=== PATIENT | male | born 1940 | race Two or more races ===

== ENCOUNTER 2018-02-19 09:09 | Emergency (ER) | payer OTHER ==
[~2018-02-19] VITALS: Ht 162.6 cm; Wt 71.0 kg
[~2018-02-19 09:09] MED LIST: AMLO5TAB7 PO; ASPI-650 PO; CARV12.543 PO; CEFD300C37 PO; FURO40TA6 PO; GABA300C10 PO; GLIP5TAB10 PO; METR500T PO
[2018-02-19 09:10] VITALS: BP 169/84
[2018-02-19] MEDS ORDERED: SODIUM CHLORIDE FLUSH 10ML SYR IVF ONE (09:30)
== END 2018-02-19 12:10 | disposition home or self-care (01) ==
LOC: ED 11:00
DX: K59.00 Constipation, unspecified (principal); E78.5 Hyperlipidemia, unspecified
CPT/HCPCS: 74018; 99284

== ENCOUNTER → 2018-02-23 | Outpatient (CLI) | payer OTHER ==
[~2018-02-23] MED LIST changes: +SINCALIDE (KINEVAC) 5 MCG ONE
== END | disposition home or self-care (01) ==
LOC: RAD 10:34
PROVIDERS: ATTEND Surgery
DX: K81.1 Chronic cholecystitis (principal); R10.9 Unspecified abdominal pain; I50.9 Heart failure, unspecified; E11.9 Type 2 diabetes mellitus without complications
CPT/HCPCS: 78227; A9537; J2805

== ENCOUNTER 2018-03-16 23:03 | Observation (INO) | payer OTHER ==
[~2018-03-16] VITALS: Ht 165.1 cm; Wt 75.1 kg
[~2018-03-16 23:03] MED LIST changes: -SINCALIDE (KINEVAC) 5 MCG ONE
[2018-03-16] MEDS ORDERED: FURO-93 PO (23:42)
[2018-03-16] MEDS ORDERED: ALLO300T PO (23:42)
[2018-03-16] MEDS ORDERED: LISI-167 PO (23:42)
[2018-03-16] MEDS ORDERED: SPIR50TA4 PO (23:42)
[2018-03-17 00:13] LABS: BASOPHILS # (AUTO) 0.04 x10^3/uL (0-0.1); BASOPHILS % (AUTO) 0 % (0-1); EOSINOPHILS # (AUTO) 1.42 x10^3/uL (0-0.4); EOSINOPHILS % (AUTO) 13 % (1-7); LYMPHOCYTES # (AUTO) 1.47 x10^3/uL (1-3.4); LYMPHOCYTES % (AUTO) 13 % (22-44); MD NO; MEAN CORPUSCULAR HEMOGLOBIN 33.3 pg (27.5-34.5); MEAN CORPUSCULAR HGB CONC 34.5 g/dL (33.2-36.2); MEAN CORPUSCULAR VOLUME 96.6 fL (81-97); MEAN PLATELET VOLUME 6.7 fL (7.4-10.4); MONOCYTES # (AUTO) 0.78 x10^3/uL (0.2-0.8); MONOCYTES % (AUTO) 7 % (2-9); NEUTROPHILS # (AUTO) 7.47 x10^3/uL (1.8-6.8); NEUTROPHILS % (AUTO) 67 % (42-75); PLATELET COUNT 376 x10^3/uL (130-400); RED BLOOD COUNT 3.82 x10^6/uL (4.38-5.82); RED CELL DISTRIBUTION WIDTH 14.3 % (9.4-14.8)
[2018-03-17 00:15] LABS: ALANINE AMINOTRANSFERASE 16 U/L (12-78); ANION GAP 8 mmol/L (5-15); CALCIUM 8.3 mg/dL (8.5-10.1); CHLORIDE 104 mmol/L (98-107); CREATININE 2.74 mg/dL (0.7-1.3)
[2018-03-17 00:17] LABS: ALKALINE PHOSPHATASE 90 U/L (45-117); BILIRUBIN,TOTAL 0.3 mg/dL (0.2-1.0); TOTAL PROTEIN 8.7 g/dL (6.4-8.2)
[2018-03-17 02:45] VITALS: BP 151/78
[2018-03-17] MEDS ORDERED: TORS10TA4 PO (03:05)
[2018-03-17 04:20] VITALS: BP 151/78
[2018-03-17] MEDS ORDERED: DOCUSATE 100 MG CAPSULE PO PRN (06:30)
[2018-03-17] MEDS ORDERED: DEXTROSE 4 GM TAB.CHEW PO PRN (06:30)
[2018-03-17] MEDS ORDERED: POLYETHYLENE GLYCOL 17 GM PACKET PO PRN (06:30)
[2018-03-17] MEDS ORDERED: DEXTROSE 50%, 50ML SYRINGE IVPush PRN (06:30)
[2018-03-17] MEDS ORDERED: ONDANSETRON 2MG/ML, 2ML IVPush PRN (06:30)
[2018-03-17] MEDS ORDERED: GLUCAGON 1 MG IM PRN (06:30)
[2018-03-17] MEDS ORDERED: ACETAMINOPHEN 325 MG TABLET PO PRN (06:30)
[2018-03-17] MEDS: INSULIN LISPRO 100 UNITS/ML, PEN SQ-INSULIN SCH ×4 (07:00→21:16)
[2018-03-17 08:19] VITALS: BP 145/69
[2018-03-17] MEDS: SENNA/DOCUSATE TABLET PO SCH (09:00)
[2018-03-17] MEDS: SODIUM CHLORIDE FLUSH 10ML SYR IVF SCH ×4 (09:00→21:17)
[2018-03-17] MEDS: SPIRONOLACTONE 50 MG TABLET PO SCH (09:13)
[2018-03-17] MEDS: ASPIRIN 325 MG TABLET EC PO SCH (09:13)
[2018-03-17] MEDS: AMLODIPINE 5 MG TABLET PO SCH ×2 (09:13→21:15)
[2018-03-17] MEDS: FUROSEMIDE 20 MG TABLET PO SCH (09:14)
[2018-03-17] MEDS: LISINOPRIL 20 MG TABLET PO SCH (09:14)
[2018-03-17] MEDS: ALLOPURINOL 100 MG TABLET PO SCH (09:14)
[2018-03-17] MEDS: CARVEDILOL 12.5 MG TABLET PO SCH ×2 (09:14→21:15)
[2018-03-17] MEDS: GABAPENTIN 300 MG CAPSULE PO SCH ×2 (09:14→21:15)
[2018-03-17 14:39] VITALS: BP 111/47
[2018-03-17 16:32] LABS: BASOPHILS # (AUTO) 0.06 x10^3/uL (0-0.1); BASOPHILS % (AUTO) 1 % (0-1); EOSINOPHILS # (AUTO) 1.62 x10^3/uL (0-0.4); EOSINOPHILS % (AUTO) 15 % (1-7); LYMPHOCYTES # (AUTO) 1.29 x10^3/uL (1-3.4); LYMPHOCYTES % (AUTO) 12 % (22-44); MD NO; MEAN CORPUSCULAR HEMOGLOBIN 32.3 pg (27.5-34.5); MEAN CORPUSCULAR HGB CONC 33.2 g/dL (33.2-36.2); MEAN CORPUSCULAR VOLUME 97.1 fL (81-97); MEAN PLATELET VOLUME 6.5 fL (7.4-10.4); MONOCYTES # (AUTO) 0.48 x10^3/uL (0.2-0.8); MONOCYTES % (AUTO) 4 % (2-9); NEUTROPHILS # (AUTO) 7.33 x10^3/uL (1.8-6.8); NEUTROPHILS % (AUTO) 68 % (42-75); PLATELET COUNT 378 x10^3/uL (130-400); RED BLOOD COUNT 3.71 x10^6/uL (4.38-5.82); RED CELL DISTRIBUTION WIDTH 14.4 % (9.4-14.8)
[2018-03-17 16:44] LABS: ANION GAP 8 mmol/L (5-15); CALCIUM 8.4 mg/dL (8.5-10.1); CHLORIDE 108 mmol/L (98-107); CREATININE 2.58 mg/dL (0.7-1.3)
[2018-03-17] MEDS ORDERED: SODIUM POLYSTYRENE SULFONATE ORAL SUSP PO ONE (17:30)
[2018-03-17 19:04] VITALS: BP 104/65
[2018-03-18 03:56] VITALS: BP 156/79
[2018-03-18] MEDS: INSULIN LISPRO 100 UNITS/ML, PEN SQ-INSULIN SCH ×3 (07:00→16:00)
[2018-03-18 07:31] VITALS: BP 143/69
[2018-03-18] MEDS: SENNA/DOCUSATE TABLET PO SCH (09:00)
[2018-03-18] MEDS: SPIRONOLACTONE 50 MG TABLET PO SCH (09:55)
[2018-03-18] MEDS: ALLOPURINOL 100 MG TABLET PO SCH (09:55)
[2018-03-18] MEDS: LISINOPRIL 20 MG TABLET PO SCH (09:55)
[2018-03-18] MEDS: GABAPENTIN 300 MG CAPSULE PO SCH (09:55)
[2018-03-18] MEDS: AMLODIPINE 5 MG TABLET PO SCH (09:55)
[2018-03-18] MEDS: CARVEDILOL 12.5 MG TABLET PO SCH (09:55)
[2018-03-18] MEDS: FUROSEMIDE 20 MG TABLET PO SCH (09:56)
[2018-03-18] MEDS: SODIUM CHLORIDE FLUSH 10ML SYR IVF SCH ×2 (09:56)
[2018-03-18] MEDS: ASPIRIN 325 MG TABLET EC PO SCH (09:56)
[2018-03-18 10:09] LABS: BASOPHILS % (AUTO) 1 % (0-1); EOSINOPHILS # (AUTO) 1.51 x10^3/uL (0-0.4); EOSINOPHILS % (AUTO) 13 % (1-7); LYMPHOCYTES # (AUTO) 1.14 x10^3/uL (1-3.4); LYMPHOCYTES % (AUTO) 10 % (22-44); MD NO; MEAN CORPUSCULAR HEMOGLOBIN 33.4 pg (27.5-34.5); MEAN CORPUSCULAR HGB CONC 34.3 g/dL (33.2-36.2); MEAN CORPUSCULAR VOLUME 97.4 fL (81-97); MEAN PLATELET VOLUME 6.2 fL (7.4-10.4); MONOCYTES # (AUTO) 0.37 x10^3/uL (0.2-0.8); MONOCYTES % (AUTO) 3 % (2-9); NEUTROPHILS # (AUTO) 8.28 x10^3/uL (1.8-6.8); NEUTROPHILS % (AUTO) 73 % (42-75); PLATELET COUNT 412 x10^3/uL (130-400); RED BLOOD COUNT 3.77 x10^6/uL (4.38-5.82)
[2018-03-18 10:17] LABS: ANION GAP 5 mmol/L (5-15); CALCIUM 8.4 mg/dL (8.5-10.1); CHLORIDE 110 mmol/L (98-107); CREATININE 2.58 mg/dL (0.7-1.3)
[2018-03-18 12:34] VITALS: BP 123/66
== END 2018-03-18 18:07 | disposition home or self-care (01) ==
LOC: ED 23:59 → EDIP 03-17 01:48 → INTOOBSV 03-17 01:48 → UNDOADMOB 03-17 01:48 → EDIP 03-17 02:45 → 4WST 03-17 02:45
PROVIDERS: ADMIT Family Medicine; ATTEND Family Medicine
DX: E11.649 Type 2 diabetes mellitus with hypoglycemia without coma (principal); E11.22 Type 2 diabetes mellitus with diabetic chronic kidney disease; E44.0 Moderate protein-calorie malnutrition; D63.1 Anemia in chronic kidney disease; E78.5 Hyperlipidemia, unspecified; I13.0 Hypertensive heart and chronic kidney disease with heart failure and stage 1 through stage 4 chronic kidney disease, or unspecified chronic kidney disease; I25.2 Old myocardial infarction; I50.22 Chronic systolic (congestive) heart failure; K21.9 Gastro-esophageal reflux disease without esophagitis; M10.9 Gout, unspecified; N18.4 Chronic kidney disease, stage 4 (severe)
CPT/HCPCS: 36415; 71045; 80048; 80053; 80307; 82962; 85025; 93005; 99285; G0378

== ENCOUNTER 2019-06-25 01:40 | Inpatient (IN) | payer MEDICARE ==
[~2019-06-25] VITALS: Ht 162.6 cm; Wt 63.1 kg
[~2019-06-25 01:40] MED LIST changes: +ALLO300T PO; +AMLO-150 PO; -AMLO5TAB7 PO; +AMOX1TAB12 PO; +DOXY100C2 PO; +FURO-93 PO; +HYDR-3342 PO; +ISOS10TA2 PO; +LISI-167 PO; +SPIR50TA PO; +SPIR50TA4 PO; +TORS10TA4 PO
--- NOTE | 2019-06-25 01:51 | NUR ---
ATTEMPTED PT TEMP IN TRIAGE X 3. THERMOMETER NOT CREATING A READING. PT AMBULATES FROM TRIAGE TO ROOM WITH STEADY GAIT.
[2019-06-25] MEDS ORDERED: ASPIRIN 81 MG TABLET CHEW ONE (03:17)
[2019-06-25] MEDS ORDERED: ALBUTEROL/IPRATROPIUM 2.5MG/0.5MG, 3 ML NPPB ONE (03:30)
[2019-06-25] MEDS ORDERED: ASPIRIN 81 MG TABLET CHEW PO ONE (03:30)
[2019-06-25] MEDS ORDERED: SODIUM CHLORIDE FLUSH 10ML SYR IVF ONE (03:30)
[2019-06-25 04:01] LABS: BASOPHILS # (AUTO) 0.03 x10^3/uL (0-0.1); BASOPHILS % (AUTO) 0 % (0-1); EOSINOPHILS # (AUTO) 0.29 x10^3/uL (0-0.4); EOSINOPHILS % (AUTO) 4 % (1-7); LYMPHOCYTES # (AUTO) 0.93 x10^3/uL (1-3.4); LYMPHOCYTES % (AUTO) 11 % (22-44); MD NO; MEAN CORPUSCULAR HEMOGLOBIN 35.2 pg (27.5-34.5); MEAN CORPUSCULAR HGB CONC 34.8 g/dL (33.2-36.2); MEAN CORPUSCULAR VOLUME 101.1 fL (81-97); MEAN PLATELET VOLUME 6.8 fL (7.4-10.4); MONOCYTES # (AUTO) 0.31 x10^3/uL (0.2-0.8); MONOCYTES % (AUTO) 4 % (2-9); NEUTROPHILS # (AUTO) 6.72 x10^3/uL (1.8-6.8); NEUTROPHILS % (AUTO) 81 % (42-75); PLATELET COUNT 387 x10^3/uL (130-400); RED BLOOD COUNT 3.39 x10^6/uL (4.38-5.82); RED CELL DISTRIBUTION WIDTH 13.7 % (9.4-14.8)
--- NOTE | 2019-06-25 04:05 | NUR ---
LAB CALLED CRITICAL POTASSIUM 5.4. DR NOTIFIED.
[2019-06-25 04:13] LABS: ALANINE AMINOTRANSFERASE 17 U/L (12-78); ALBUMIN 2.5 g/dL (3.4-5.0); ALKALINE PHOSPHATASE 89 U/L (45-117); ANION GAP 5 mmol/L (5-15); BILIRUBIN,TOTAL 0.5 mg/dL (0.2-1.0); CALCIUM 8.3 mg/dL (8.5-10.1); CHLORIDE 108 mmol/L (98-107); CREATININE 3.72 mg/dL (0.7-1.3); TOTAL PROTEIN 8.5 g/dL (6.4-8.2); TROPONIN I 0.108 ng/mL (0.000-0.045)
--- NOTE | 2019-06-25 04:15 | NUR ---
UA COLLECTED. SENT TO LAB.
[2019-06-25] MEDS ORDERED: CEFTRIAXONE PMX 1GM/50ML 50 ML ONE (04:21)
[2019-06-25] MEDS ORDERED: CEFTRIAXONE PMX 1GM/50ML 50 ML IV ONE (04:30)
[2019-06-25] MEDS ORDERED: FUROSEMIDE 40 MG/4 ML IV ONE (04:30)
[2019-06-25] MEDS ORDERED: AZITHROMYCIN 500 MG in SODIUM CHLORIDE 0.9% 250 ML IV ONE (04:30)
[2019-06-25] MEDS ORDERED: methylPREDNISolone SOD SUCC 125 MG/2 ML IVPush STA (04:32)
[2019-06-25] MEDS ORDERED: methylPREDNISolone SOD SUCC 125 MG/2 ML ONE (04:36)
[2019-06-25] MEDS ORDERED: FUROSEMIDE 40 MG/4 ML ONE (04:37)
[2019-06-25 04:47] LABS: MICROSCOPIC AUTO
[2019-06-25 04:51] LABS: CULTURE INDICATED? NO
--- NOTE | 2019-06-25 05:11 | NUR ---
PT RESTING COMFORTABLY. FAMILY AT BEDSIDE. MONITOR IN PLACE.
--- NOTE | 2019-06-25 06:34 | NUR ---
PT RESTING COMFORTABLY. FAMILY AT BEDSIDE. MONITOR IN PLACE.
--- NOTE | 2019-06-25 07:34 | NUR ---
PT NOR SON KNOWS THE DOSES FOR THE MEDS HE TAKES AT HOME. MED REC DONE PER FAMILY REPORT OF NAMES OF MEDS PT TAKES
[2019-06-25] MEDS ORDERED: TORSEMIDE (07:35)
--- NOTE | 2019-06-25 07:45 | NUR ---
REPORT TO AMBERLY VENTURA
[2019-06-25] MEDS ORDERED: ONDANSETRON 2MG/ML, 2ML IVPush PRN (08:00)
[2019-06-25] MEDS ORDERED: DOCUSATE 100 MG CAPSULE PO PRN (08:00)
[2019-06-25] MEDS ORDERED: morphine SULFATE 10 MG/ML, 1ML IVPush PRN (08:00)
[2019-06-25] MEDS ORDERED: POLYETHYLENE GLYCOL 17 GM PACKET PO PRN (08:00)
[2019-06-25] MEDS ORDERED: PROMETHAZINE 25 MG/ML, 1ML IM PRN (08:00)
[2019-06-25] MEDS ORDERED: BISACODYL 10 MG SUPP PR PRN (08:00)
[2019-06-25] MEDS ORDERED: ONDANSETRON ODT 4 MG PO PRN (08:00)
[2019-06-25] MEDS ORDERED: FUROSEMIDE 20 MG TABLET PO SCH ×2 (08:00→17:00)
[2019-06-25 08:32] VITALS: BP 169/90
[2019-06-25 08:54] LABS: FREE T4 (FREE THYROXINE) 1.47 ng/dL (0.76-1.46); TROPONIN I 0.079 ng/mL (0.000-0.045)
[2019-06-25] MEDS ORDERED: SODIUM POLYSTYRENE SULFONATE ORAL SUSP PO ONE (09:00)
[2019-06-25] MEDS: CARVEDILOL 12.5 MG TABLET PO SCH ×2 (09:35→21:13)
[2019-06-25] MEDS: HEPARIN 5,000 UNITS/ML, 1ML SQ SCH ×2 (09:35→17:18)
[2019-06-25] MEDS: GUAIFENESIN ER 600 MG TABLET PO SCH ×2 (09:35→21:13)
[2019-06-25] MEDS: ALLOPURINOL 100 MG TABLET PO SCH (09:35)
[2019-06-25 12:25] VITALS: BP 160/88
[2019-06-25 13:00] LABS: TROPONIN I 0.079 ng/mL (0.000-0.045)
[2019-06-25 13:05] LABS: CREATININE,URINE RANDOM 33.3 mg/dL
[2019-06-25] MEDS: OXYcodone IR 5MG TABLET PO PRN (14:37)
[2019-06-25 15:32] LABS: ANION GAP 11 mmol/L (5-15); CALCIUM 8.4 mg/dL (8.5-10.1); CHLORIDE 106 mmol/L (98-107)
[2019-06-25 15:39] LABS: CREATININE 4.24 mg/dL (0.7-1.3); TROPONIN I 0.097 ng/mL (0.000-0.045)
[2019-06-25] MEDS ORDERED: FUROSEMIDE 40 MG TABLET PO SCH (17:00)
[2019-06-25] MEDS: ACETAMINOPHEN 325 MG TABLET PO PRN ×2 (17:18→21:13)
[2019-06-25 20:40] VITALS: BP 158/87
[2019-06-25] MEDS: DOXYCYCLINE 100MG TABLET PO SCH (21:13)
[2019-06-26 00:20] VITALS: BP 150/97
[2019-06-26] MEDS: HEPARIN 5,000 UNITS/ML, 1ML SQ SCH ×3 (01:16→17:39)
[2019-06-26 06:20] LABS: ALBUMIN 2.1 g/dL (3.4-5.0); ANION GAP 11 mmol/L (5-15); CALCIUM 7.6 mg/dL (8.5-10.1); CHLORIDE 105 mmol/L (98-107); CHOLESTEROL, TOTAL 106 mg/dL (140-239); TRIGLYCERIDES 67 mg/dL (50-200); VLDL CHOLESTEROL 13 mg/dL (0-25)
[2019-06-26 06:23] LABS: BASOPHILS # (AUTO) 0.04 x10^3/uL (0-0.1); BASOPHILS % (AUTO) 0 % (0-1); EOSINOPHILS % (AUTO) 0 % (1-7); LYMPHOCYTES # (AUTO) 0.73 x10^3/uL (1-3.4); LYMPHOCYTES % (AUTO) 6 % (22-44); MD NO; MEAN CORPUSCULAR HEMOGLOBIN 34.9 pg (27.5-34.5); MEAN CORPUSCULAR HGB CONC 34.2 g/dL (33.2-36.2); MEAN CORPUSCULAR VOLUME 101.9 fL (81-97); MEAN PLATELET VOLUME 6.9 fL (7.4-10.4); MONOCYTES # (AUTO) 0.16 x10^3/uL (0.2-0.8); MONOCYTES % (AUTO) 1 % (2-9); NEUTROPHILS % (AUTO) 93 % (42-75); PLATELET COUNT 347 x10^3/uL (130-400); RED BLOOD COUNT 3.21 x10^6/uL (4.38-5.82); RED CELL DISTRIBUTION WIDTH 13.5 % (9.4-14.8)
[2019-06-26 06:37] LABS: % IRON SATURATION 24 % (20-55); ALANINE AMINOTRANSFERASE 52 U/L (12-78); ALKALINE PHOSPHATASE 90 U/L (45-117); BILIRUBIN,TOTAL 0.4 mg/dL (0.2-1.0); CHOL/HDL RATIO 2.7; CREATININE 4.68 mg/dL (0.7-1.3); HDL CHOL % 37 % (26-37); HDL CHOLESTEROL (DIRECT) 39 mg/dL (40-60); IRON LEVEL 60 mcg/dL (65-175); LDL CHOLESTEROL,CALCULATED 54 mg/dL (54-169); LDL/HDL RATIO 1.4 (0.5-3.0); TOTAL IRON BINDING CAPACITY 255 mcg/dL (250-450); TOTAL PROTEIN 7.6 g/dL (6.4-8.2)
[2019-06-26 07:51] VITALS: BP 136/72
[2019-06-26] MEDS ORDERED: SODIUM POLYSTYRENE SULFONATE ORAL SUSP PO ONE (10:00)
[2019-06-26] MEDS ORDERED: SODIUM CHLORIDE 0.9%, 250ML IVBOLUS ONE (10:00)
[2019-06-26] MEDS: CARVEDILOL 12.5 MG TABLET PO SCH ×2 (10:08→19:39)
[2019-06-26] MEDS: DOXYCYCLINE 100MG TABLET PO SCH ×2 (10:08→19:38)
[2019-06-26] MEDS: GUAIFENESIN ER 600 MG TABLET PO SCH ×2 (10:08→19:38)
[2019-06-26] MEDS: ALLOPURINOL 100 MG TABLET PO SCH (10:08)
[2019-06-26] MEDS: ERGOCALCIFEROL 50,000 UNIT CAPSULE PO SCH (10:08)
[2019-06-26] MEDS: CALCITRIOL 0.25 MCG CAPSULE PO SCH (10:08)
[2019-06-26] MEDS: ASPIRIN 81 MG TABLET CHEW PO SCH (10:18)
[2019-06-26 13:13] VITALS: BP 140/91
[2019-06-26 18:29] VITALS: BP 173/111
[2019-06-26 19:11] LABS: ALANINE AMINOTRANSFERASE 68 U/L (12-78); ALBUMIN 2.4 g/dL (3.4-5.0); ANION GAP 12 mmol/L (5-15); CALCIUM 7.6 mg/dL (8.5-10.1); CHLORIDE 102 mmol/L (98-107); CREATININE 4.96 mg/dL (0.7-1.3)
[2019-06-26 19:13] LABS: ALKALINE PHOSPHATASE 117 U/L (45-117); BILIRUBIN,TOTAL 0.4 mg/dL (0.2-1.0); TOTAL PROTEIN 8.5 g/dL (6.4-8.2)
[2019-06-26] MEDS: ATORVASTATIN 40 MG TABLET PO SCH (19:38)
[2019-06-26] MEDS: hydrALAzine 20 MG/ML, 1ML IVPush PRN (19:38)
[2019-06-26] MEDS: CEFTRIAXONE PMX 2GM/50ML 50 ML IV SCH ×2 (23:50)
[2019-06-27 02:15] VITALS: BP 135/77
[2019-06-27] MEDS: HEPARIN 5,000 UNITS/ML, 1ML SQ SCH ×3 (02:22→16:31)
[2019-06-27] MEDS: ACETAMINOPHEN 325 MG TABLET PO PRN (02:52)
[2019-06-27] MEDS: OXYcodone IR 5MG TABLET PO PRN (02:53)
[2019-06-27] MEDS: ALBUTEROL/IPRATROPIUM 2.5MG/0.5MG, 3 ML IPPB PRN (03:29)
[2019-06-27 06:27] LABS: BASOPHILS % (AUTO) 0 % (0-1); EOSINOPHILS # (AUTO) 0.07 x10^3/uL (0-0.4); EOSINOPHILS % (AUTO) 1 % (1-7); LYMPHOCYTES # (AUTO) 0.67 x10^3/uL (1-3.4); LYMPHOCYTES % (AUTO) 4 % (22-44); MD NO; MEAN CORPUSCULAR HEMOGLOBIN 34.1 pg (27.5-34.5); MEAN CORPUSCULAR HGB CONC 33.6 g/dL (33.2-36.2); MEAN CORPUSCULAR VOLUME 101.5 fL (81-97); MEAN PLATELET VOLUME 7.5 fL (7.4-10.4); MONOCYTES # (AUTO) 0.17 x10^3/uL (0.2-0.8); MONOCYTES % (AUTO) 1 % (2-9); NEUTROPHILS # (AUTO) 14.94 x10^3/uL (1.8-6.8); NEUTROPHILS % (AUTO) 94 % (42-75); PLATELET COUNT 363 x10^3/uL (130-400); RED BLOOD COUNT 3.38 x10^6/uL (4.38-5.82); RED CELL DISTRIBUTION WIDTH 13.8 % (9.4-14.8)
[2019-06-27 06:35] LABS: ALBUMIN 2.2 g/dL (3.4-5.0); ANION GAP 11 mmol/L (5-15); CALCIUM 7.3 mg/dL (8.5-10.1); CHLORIDE 104 mmol/L (98-107)
[2019-06-27 06:37] LABS: CREATININE 4.75 mg/dL (0.7-1.3)
[2019-06-27 08:05] VITALS: BP 156/95
[2019-06-27] MEDS: GUAIFENESIN ER 600 MG TABLET PO SCH ×2 (08:18→20:19)
[2019-06-27] MEDS: CARVEDILOL 12.5 MG TABLET PO SCH ×2 (08:18→20:20)
[2019-06-27] MEDS: ASPIRIN 81 MG TABLET CHEW PO SCH (08:18)
[2019-06-27] MEDS: ALLOPURINOL 100 MG TABLET PO SCH (08:19)
[2019-06-27] MEDS: DOXYCYCLINE 100MG TABLET PO SCH ×2 (08:19→20:19)
[2019-06-27] MEDS: CALCITRIOL 0.25 MCG CAPSULE PO SCH (08:19)
[2019-06-27] MEDS ORDERED: FUROSEMIDE 40 MG/4 ML IV ONE (10:00)
[2019-06-27] MEDS: SEVELAMER CARBONATE 800MG TAB PO SCH ×2 (12:50→17:42)
[2019-06-27 16:21] VITALS: BP 179/104
[2019-06-27] MEDS: hydrALAzine 20 MG/ML, 1ML IVPush PRN (16:31)
[2019-06-27 19:08] VITALS: BP 164/90
[2019-06-27] MEDS: ATORVASTATIN 40 MG TABLET PO SCH (20:20)
[2019-06-27] MEDS: CEFTRIAXONE PMX 2GM/50ML 50 ML IV SCH (23:27)
[2019-06-28 00:30] VITALS: BP 134/79
[2019-06-28] MEDS: HEPARIN 5,000 UNITS/ML, 1ML SQ SCH ×3 (00:36→17:24)
[2019-06-28] MEDS: OXYcodone IR 5MG TABLET PO PRN (00:36)
[2019-06-28] MEDS: ACETAMINOPHEN 325 MG TABLET PO PRN (00:36)
[2019-06-28 05:11] LABS: BASOPHILS # (AUTO) 0.02 x10^3/uL (0-0.1); BASOPHILS % (AUTO) 0 % (0-1); EOSINOPHILS # (AUTO) 0.47 x10^3/uL (0-0.4); EOSINOPHILS % (AUTO) 4 % (1-7); LYMPHOCYTES # (AUTO) 0.72 x10^3/uL (1-3.4); LYMPHOCYTES % (AUTO) 6 % (22-44); MD NO; MEAN CORPUSCULAR HEMOGLOBIN 34.9 pg (27.5-34.5); MEAN CORPUSCULAR HGB CONC 34.1 g/dL (33.2-36.2); MEAN CORPUSCULAR VOLUME 102.3 fL (81-97); MEAN PLATELET VOLUME 7.3 fL (7.4-10.4); MONOCYTES # (AUTO) 0.37 x10^3/uL (0.2-0.8); MONOCYTES % (AUTO) 3 % (2-9); NEUTROPHILS # (AUTO) 11.51 x10^3/uL (1.8-6.8); NEUTROPHILS % (AUTO) 88 % (42-75); PLATELET COUNT 364 x10^3/uL (130-400); RED BLOOD COUNT 3.33 x10^6/uL (4.38-5.82); RED CELL DISTRIBUTION WIDTH 13.9 % (9.4-14.8)
[2019-06-28 05:17] LABS: CHLORIDE 101 mmol/L (98-107)
[2019-06-28 05:24] LABS: ALBUMIN 2.1 g/dL (3.4-5.0); ANION GAP 8 mmol/L (5-15); CALCIUM 7.6 mg/dL (8.5-10.1)
[2019-06-28] MEDS ORDERED: FUROSEMIDE 20 MG/2 ML IV ONE (08:30)
[2019-06-28] MEDS: ASPIRIN 81 MG TABLET CHEW PO SCH (08:35)
[2019-06-28] MEDS: SEVELAMER CARBONATE 800MG TAB PO SCH ×3 (08:35→17:24)
[2019-06-28] MEDS: ALLOPURINOL 100 MG TABLET PO SCH (08:35)
[2019-06-28] MEDS: GUAIFENESIN ER 600 MG TABLET PO SCH ×2 (08:35→20:02)
[2019-06-28] MEDS: DOXYCYCLINE 100MG TABLET PO SCH ×2 (08:35→20:02)
[2019-06-28] MEDS: CALCITRIOL 0.25 MCG CAPSULE PO SCH (08:35)
[2019-06-28] MEDS: CARVEDILOL 12.5 MG TABLET PO SCH ×2 (08:35→20:03)
[2019-06-28 08:45] VITALS: BP 159/99
[2019-06-28] MEDS ORDERED: QUETIAPINE 25MG TABLET PO PRN (15:30)
[2019-06-28] MEDS ORDERED: INSTRUCTION SEE COMMENTS XX PRN (15:30)
[2019-06-28] MEDS ORDERED: PHARMACY INSTRUCTION MC PRN (15:30)
[2019-06-28 15:40] VITALS: BP 169/89
[2019-06-28 17:22] VITALS: BP 158/98
[2019-06-28] MEDS: FUROSEMIDE 20 MG/2 ML IV SCH (17:24)
[2019-06-28 18:37] VITALS: BP 176/94
[2019-06-28] MEDS: MELATONIN 3 MG TABLET PO SCH (20:02)
[2019-06-28] MEDS: ATORVASTATIN 40 MG TABLET PO SCH (20:02)
[2019-06-28 20:04] VITALS: BP 178/67
[2019-06-28] MEDS: CEFTRIAXONE PMX 2GM/50ML 50 ML IV SCH (20:52)
[2019-06-29] MEDS: ALBUTEROL/IPRATROPIUM 2.5MG/0.5MG, 3 ML IPPB PRN (00:08)
[2019-06-29] MEDS ORDERED: ONDA4TAB7 PO (00:23)
[2019-06-29] MEDS ORDERED: ALBUTEROL/IPRATROPIUM 2.5MG/0.5MG, 3 ML NPPB PRN (00:30)
[2019-06-29 06:38] LABS: ALBUMIN 2.1 g/dL (3.4-5.0); ANION GAP 9 mmol/L (5-15); CALCIUM 7.5 mg/dL (8.5-10.1); CHLORIDE 98 mmol/L (98-107)
[2019-06-29 06:42] LABS: ALANINE AMINOTRANSFERASE 61 U/L (12-78); ALKALINE PHOSPHATASE 78 U/L (45-117); BILIRUBIN,TOTAL 0.4 mg/dL (0.2-1.0); CREATININE 3.92 mg/dL (0.7-1.3)
[2019-06-29 07:58] LABS: MEAN CORPUSCULAR HEMOGLOBIN 32.2 pg (27.5-34.5); MEAN CORPUSCULAR HGB CONC 33.1 g/dL (33.2-36.2); MEAN CORPUSCULAR VOLUME 97.3 fL (81-97); MEAN PLATELET VOLUME 6.7 fL (7.4-10.4); PLATELET COUNT 354 x10^3/uL (130-400); RED BLOOD COUNT 3.74 x10^6/uL (4.38-5.82); RED CELL DISTRIBUTION WIDTH 13.6 % (9.4-14.8)
[2019-06-29] MEDS: SEVELAMER CARBONATE 800MG TAB PO SCH ×3 (08:28→16:47)
[2019-06-29] MEDS: CALCITRIOL 0.25 MCG CAPSULE PO SCH (08:28)
[2019-06-29] MEDS: FUROSEMIDE 20 MG/2 ML IV SCH ×2 (08:28→16:47)
[2019-06-29] MEDS: DOXYCYCLINE 100MG TABLET PO SCH ×2 (08:29→20:06)
[2019-06-29] MEDS: ASPIRIN 81 MG TABLET CHEW PO SCH (08:29)
[2019-06-29] MEDS: CARVEDILOL 12.5 MG TABLET PO SCH ×2 (08:29→20:07)
[2019-06-29] MEDS: ALLOPURINOL 100 MG TABLET PO SCH (08:29)
[2019-06-29] MEDS: HEPARIN 5,000 UNITS/ML, 1ML SQ SCH ×2 (08:29→16:47)
[2019-06-29] MEDS: GUAIFENESIN ER 600 MG TABLET PO SCH ×2 (08:29→20:07)
[2019-06-29 08:30] VITALS: BP 164/86
[2019-06-29] MEDS: AMOXICILLIN/CLAV 875-125MG TABLET PO SCH ×2 (08:45→20:06)
[2019-06-29] MEDS: POTASSIUM CHLORIDE 20 MEQ TAB.ER.PRT PO SCH (08:45)
[2019-06-29 08:46] LABS: BASOPHILS # (AUTO) 0.01 x10^3/uL (0-0.1); BASOPHILS % (AUTO) 0 % (0-1); EOSINOPHILS # (AUTO) 0.32 x10^3/uL (0-0.4); EOSINOPHILS % (AUTO) 3 % (1-7); LYMPHOCYTES # (AUTO) 0.72 x10^3/uL (1-3.4); LYMPHOCYTES % (AUTO) 7 % (22-44); MD SCAN; MONOCYTES # (AUTO) 0.36 x10^3/uL (0.2-0.8); MONOCYTES % (AUTO) 3 % (2-9); NEUTROPHILS # (AUTO) 9.14 x10^3/uL (1.8-6.8); NEUTROPHILS % (AUTO) 87 % (42-75)
[2019-06-29 14:09] VITALS: BP 124/70
[2019-06-29 18:41] VITALS: BP 146/86
[2019-06-29] MEDS: MELATONIN 3 MG TABLET PO SCH (20:06)
[2019-06-29] MEDS: ATORVASTATIN 40 MG TABLET PO SCH (20:07)
[2019-06-30 00:15] VITALS: BP 152/81
[2019-06-30] MEDS: HEPARIN 5,000 UNITS/ML, 1ML SQ SCH ×3 (00:17→16:43)
[2019-06-30 06:20] VITALS: BP 150/67
[2019-06-30] MEDS: SEVELAMER CARBONATE 800MG TAB PO SCH ×3 (08:00→16:44)
[2019-06-30 08:32] LABS: BASOPHILS # (AUTO) 0.03 x10^3/uL (0-0.1); BASOPHILS % (AUTO) 0 % (0-1); EOSINOPHILS # (AUTO) 0.42 x10^3/uL (0-0.4); EOSINOPHILS % (AUTO) 4 % (1-7); LYMPHOCYTES % (AUTO) 9 % (22-44); MD NO; MEAN CORPUSCULAR HEMOGLOBIN 31.6 pg (27.5-34.5); MEAN CORPUSCULAR HGB CONC 32.6 g/dL (33.2-36.2); MEAN CORPUSCULAR VOLUME 96.8 fL (81-97); MEAN PLATELET VOLUME 6.4 fL (7.4-10.4); MONOCYTES # (AUTO) 0.36 x10^3/uL (0.2-0.8); MONOCYTES % (AUTO) 3 % (2-9); NEUTROPHILS % (AUTO) 84 % (42-75); PLATELET COUNT 339 x10^3/uL (130-400); RED BLOOD COUNT 3.98 x10^6/uL (4.38-5.82); RED CELL DISTRIBUTION WIDTH 13.8 % (9.4-14.8)
[2019-06-30 08:43] LABS: ALANINE AMINOTRANSFERASE 93 U/L (12-78); ANION GAP 7 mmol/L (5-15); CALCIUM 7.9 mg/dL (8.5-10.1); CHLORIDE 96 mmol/L (98-107); CREATININE 3.63 mg/dL (0.7-1.3)
[2019-06-30 08:45] LABS: ALBUMIN 2.4 g/dL (3.4-5.0); ALKALINE PHOSPHATASE 85 U/L (45-117); BILIRUBIN,TOTAL 0.6 mg/dL (0.2-1.0); TOTAL PROTEIN 7.9 g/dL (6.4-8.2)
[2019-06-30] MEDS: FUROSEMIDE 20 MG/2 ML IV SCH (08:45)
[2019-06-30] MEDS: ALLOPURINOL 100 MG TABLET PO SCH (08:47)
[2019-06-30] MEDS: CALCITRIOL 0.25 MCG CAPSULE PO SCH (08:47)
[2019-06-30] MEDS: POTASSIUM CHLORIDE 20 MEQ TAB.ER.PRT PO SCH ×2 (08:47→22:11)
[2019-06-30] MEDS: GUAIFENESIN ER 600 MG TABLET PO SCH ×2 (08:47→22:11)
[2019-06-30] MEDS: ASPIRIN 81 MG TABLET CHEW PO SCH (08:47)
[2019-06-30] MEDS: DOXYCYCLINE 100MG TABLET PO SCH ×2 (08:47→22:11)
[2019-06-30] MEDS: CARVEDILOL 12.5 MG TABLET PO SCH ×2 (08:47→22:11)
[2019-06-30] MEDS: AMOXICILLIN/CLAV 875-125MG TABLET PO SCH ×2 (08:47→22:11)
[2019-06-30 12:28] VITALS: BP 121/65
[2019-06-30] MEDS: FUROSEMIDE 40 MG/4 ML IV SCH (16:44)
[2019-06-30 19:22] VITALS: BP 127/68
[2019-06-30 22:04] VITALS: BP 145/57
[2019-06-30] MEDS: MELATONIN 3 MG TABLET PO SCH (22:11)
[2019-06-30] MEDS: ATORVASTATIN 40 MG TABLET PO SCH (22:12)
[2019-07-01] MEDS: HEPARIN 5,000 UNITS/ML, 1ML SQ SCH ×3 (01:08→17:13)
[2019-07-01 05:55] LABS: BASOPHILS # (AUTO) 0.02 x10^3/uL (0-0.1); BASOPHILS % (AUTO) 0 % (0-1); EOSINOPHILS # (AUTO) 0.66 x10^3/uL (0-0.4); EOSINOPHILS % (AUTO) 7 % (1-7); LYMPHOCYTES # (AUTO) 1.21 x10^3/uL (1-3.4); LYMPHOCYTES % (AUTO) 13 % (22-44); MD NO; MEAN CORPUSCULAR HGB CONC 33.5 g/dL (33.2-36.2); MEAN CORPUSCULAR VOLUME 98.5 fL (81-97); MEAN PLATELET VOLUME 7.3 fL (7.4-10.4); MONOCYTES # (AUTO) 0.74 x10^3/uL (0.2-0.8); MONOCYTES % (AUTO) 8 % (2-9); NEUTROPHILS # (AUTO) 6.55 x10^3/uL (1.8-6.8); NEUTROPHILS % (AUTO) 71 % (42-75); PLATELET COUNT 318 x10^3/uL (130-400); RED BLOOD COUNT 3.77 x10^6/uL (4.38-5.82); RED CELL DISTRIBUTION WIDTH 13.8 % (9.4-14.8)
[2019-07-01 06:10] LABS: CHLORIDE 93 mmol/L (98-107)
[2019-07-01 06:16] VITALS: BP 131/75
[2019-07-01 06:18] LABS: ALANINE AMINOTRANSFERASE 84 U/L (12-78); ALBUMIN 2.3 g/dL (3.4-5.0); ALKALINE PHOSPHATASE 101 U/L (45-117); ANION GAP 10 mmol/L (5-15); BILIRUBIN,TOTAL 0.6 mg/dL (0.2-1.0); CALCIUM 8.2 mg/dL (8.5-10.1); CREATININE 3.47 mg/dL (0.7-1.3); TOTAL PROTEIN 7.4 g/dL (6.4-8.2)
[2019-07-01] MEDS: FUROSEMIDE 40 MG/4 ML IV SCH ×2 (08:22→17:13)
[2019-07-01] MEDS: CALCITRIOL 0.25 MCG CAPSULE PO SCH (08:23)
[2019-07-01] MEDS: ASPIRIN 81 MG TABLET CHEW PO SCH (08:23)
[2019-07-01] MEDS: DOXYCYCLINE 100MG TABLET PO SCH ×2 (08:23→19:24)
[2019-07-01] MEDS: CARVEDILOL 12.5 MG TABLET PO SCH ×2 (08:23→19:24)
[2019-07-01] MEDS: SEVELAMER CARBONATE 800MG TAB PO SCH ×3 (08:23→17:00)
[2019-07-01] MEDS: AMOXICILLIN/CLAV 875-125MG TABLET PO SCH ×2 (08:23→19:24)
[2019-07-01] MEDS: ALLOPURINOL 100 MG TABLET PO SCH (08:23)
[2019-07-01] MEDS: GUAIFENESIN ER 600 MG TABLET PO SCH ×2 (08:24→19:24)
[2019-07-01] MEDS: POTASSIUM CHLORIDE 20 MEQ TAB.ER.PRT PO SCH ×2 (08:24→19:24)
[2019-07-01 12:30] VITALS: BP 89/53
[2019-07-01 14:43] VITALS: BP 93/61
[2019-07-01 19:21] VITALS: BP 97/53
[2019-07-01] MEDS: MELATONIN 3 MG TABLET PO SCH (19:24)
[2019-07-01 20:20] VITALS: BP 116/72
[2019-07-02] MEDS: HEPARIN 5,000 UNITS/ML, 1ML SQ SCH ×3 (01:40→17:00)
[2019-07-02 06:56] LABS: CHLORIDE 95 mmol/L (98-107)
[2019-07-02] MEDS: POTASSIUM CHLORIDE 20 MEQ TAB.ER.PRT PO SCH ×2 (07:15→21:51)
[2019-07-02] MEDS: ALLOPURINOL 100 MG TABLET PO SCH (07:15)
[2019-07-02] MEDS: FUROSEMIDE 40 MG/4 ML IV SCH (07:15)
[2019-07-02] MEDS: CALCITRIOL 0.25 MCG CAPSULE PO SCH (07:15)
[2019-07-02] MEDS: DOXYCYCLINE 100MG TABLET PO SCH (07:15)
[2019-07-02] MEDS: GUAIFENESIN ER 600 MG TABLET PO SCH ×2 (07:15→21:51)
[2019-07-02] MEDS: ASPIRIN 81 MG TABLET CHEW PO SCH (07:15)
[2019-07-02] MEDS: AMOXICILLIN/CLAV 875-125MG TABLET PO SCH (07:15)
[2019-07-02] MEDS: CARVEDILOL 12.5 MG TABLET PO SCH ×2 (07:18→21:51)
[2019-07-02 07:19] VITALS: BP 101/67
[2019-07-02 07:19] LABS: ALANINE AMINOTRANSFERASE 73 U/L (12-78); ALBUMIN 2.5 g/dL (3.4-5.0); ALKALINE PHOSPHATASE 118 U/L (45-117); ANION GAP 8 mmol/L (5-15); BILIRUBIN,TOTAL 0.7 mg/dL (0.2-1.0); CALCIUM 8.3 mg/dL (8.5-10.1); CREATININE 3.46 mg/dL (0.7-1.3); TOTAL PROTEIN 8.2 g/dL (6.4-8.2)
[2019-07-02] MEDS: SEVELAMER CARBONATE 800MG TAB PO SCH ×3 (07:30→17:00)
[2019-07-02 12:25] VITALS: BP 101/61
[2019-07-02 19:07] VITALS: BP 120/72
[2019-07-02] MEDS: MELATONIN 3 MG TABLET PO SCH (21:51)
[2019-07-02] MEDS: TORSEMIDE 20 MG TABLET PO SCH (21:51)
[2019-07-03] MEDS: HEPARIN 5,000 UNITS/ML, 1ML SQ SCH ×2 (01:00→08:57)
[2019-07-03 01:26] VITALS: BP 125/76
[2019-07-03 06:09] LABS: CALCIUM 8.8 mg/dL (8.5-10.1); CHLORIDE 97 mmol/L (98-107)
[2019-07-03 06:14] LABS: ALANINE AMINOTRANSFERASE 55 U/L (12-78); ALBUMIN 2.5 g/dL (3.4-5.0); ALKALINE PHOSPHATASE 112 U/L (45-117); ANION GAP 5 mmol/L (5-15); BILIRUBIN,TOTAL 0.9 mg/dL (0.2-1.0); TOTAL PROTEIN 8.2 g/dL (6.4-8.2)
[2019-07-03 07:25] VITALS: BP 107/59
[2019-07-03] MEDS: GUAIFENESIN ER 600 MG TABLET PO SCH (08:49)
[2019-07-03] MEDS: TORSEMIDE 20 MG TABLET PO SCH (08:49)
[2019-07-03] MEDS: POTASSIUM CHLORIDE 20 MEQ TAB.ER.PRT PO SCH ×2 (08:49→09:00)
[2019-07-03] MEDS: CALCITRIOL 0.25 MCG CAPSULE PO SCH (08:50)
[2019-07-03] MEDS: SEVELAMER CARBONATE 800MG TAB PO SCH ×2 (08:50→12:50)
[2019-07-03] MEDS: ALLOPURINOL 100 MG TABLET PO SCH (08:50)
[2019-07-03] MEDS: ASPIRIN 81 MG TABLET CHEW PO SCH (08:50)
[2019-07-03] MEDS: CARVEDILOL 12.5 MG TABLET PO SCH (08:50)
[2019-07-03] MEDS ORDERED: GUAI600T31 PO (10:04)
[2019-07-03] MEDS ORDERED: SEVE800T8 PO (10:04)
[2019-07-03] MEDS ORDERED: ERGO500017 PO (10:04)
[2019-07-03] MEDS ORDERED: TORS20TA2 PO (10:04)
[2019-07-03] MEDS ORDERED: CALC0.25 PO (10:04)
[2019-07-03] MEDS ORDERED: POTA20TA6 PO (10:04)
[2019-07-03] MEDS ORDERED: ALBU90AE INH (10:04)
[2019-07-03] MEDS: ERGOCALCIFEROL 50,000 UNIT CAPSULE PO SCH (12:50)
[2019-07-03] MEDS ORDERED: FLU VACC QS2019-20 36MOS UP/PF 0.5 ML IM-VACC ONE (13:30)
[2019-07-03 14:23] VITALS: BP 96/59
== END 2019-07-03 14:50 | disposition home health service (06) | DRG 177 ==
LOC: ED 05:51 → EDIP 06:38 → 5SO 07:51 → 4EST 06-29 18:04 → DCLOUNGE 07-03 14:41
PROVIDERS: ADMIT Internal Medicine; ATTEND Internal Medicine
DX: J15.6 Pneumonia due to other Gram-negative bacteria (principal); I21.A1 Myocardial infarction type 2; I50.23 Acute on chronic systolic (congestive) heart failure; G93.41 Metabolic encephalopathy; I13.0 Hypertensive heart and chronic kidney disease with heart failure and stage 1 through stage 4 chronic kidney disease, or unspecified chronic kidney disease; N18.4 Chronic kidney disease, stage 4 (severe); I42.9 Cardiomyopathy, unspecified; N17.9 Acute kidney failure, unspecified; E87.1 Hypo-osmolality and hyponatremia; D63.1 Anemia in chronic kidney disease; D53.9 Nutritional anemia, unspecified; D75.89 Other specified diseases of blood and blood-forming organs; E11.22 Type 2 diabetes mellitus with diabetic chronic kidney disease; E78.5 Hyperlipidemia, unspecified; E87.5 Hyperkalemia; I25.10 Atherosclerotic heart disease of native coronary artery without angina pectoris; K76.1 Chronic passive congestion of liver; M10.9 Gout, unspecified; R09.02 Hypoxemia; Z23 Encounter for immunization; R41.0 Disorientation, unspecified
CPT/HCPCS: 36415; 70450; 71045; 80048; 80053; 80061; 80069; 81001; 82306; 82570; 82607; 82728; 83036; 83540; 83550; 83605; 83735; 83880; 83970; 84100; 84156; 84439; 84443; 84484; 85025; 87040; 87070; 87205; 90686; 93005; 93306; 94640; 96365; 96368; G0378; J0456; J0696; J1644; J1940; J7620; J0360; J2930; J7050